=== PATIENT | female | born 1965 | race Caucasian/White ===

== ENCOUNTER 2016-11-18 11:30 | Outpatient (CLI) ==
[2016-11-18 11:57] LABS: HEMATOCRIT 40.7 % (37.0-47.0); HEMOGLOBIN 13.7 g/dl (12.0-16.0); MEAN CORPUSCULAR HEMOGLOBIN 32.9 pg (27.0-31.0); MEAN CORPUSCULAR HGB CONC 33.7 (31.8-35.4); MEAN CORPUSCULAR VOLUME 97.8 fl (81.0-99.0); PLATELET COUNT 186 10^3/uL (140-440); RED BLOOD COUNT 4.16 10^6/ul (4.20-5.40); WHITE BLOOD COUNT 5.04 K/ul (4.6-10.2)
[2016-11-18 12:27] LABS: CREATININE 0.76 mg/dL (0.60-1.30)
[2016-11-18 12:52] LABS: ERYTHROCYTE SEDIMENTATION RATE 31 mm/hr (0-20); ESR INTERNAL QC INTERNAL QC VALID
== END 2016-11-18 11:31 | disposition home or self-care (01) ==
LOC: LAB 11:30
PROVIDERS: ATTEND Internal Medicine Rheumatology
DX: M05.79 Rheumatoid arthritis with rheumatoid factor of multiple sites without organ or systems involvement (principal); Z79.899 Other long term (current) drug therapy
CPT/HCPCS: 36415; 82565; 84450; 84460; 85027; 85651

== ENCOUNTER 2017-06-03 10:04 | Outpatient (CLI) ==
[2017-06-03 10:25] LABS: HEMATOCRIT 39.5 % (37.0-47.0); HEMOGLOBIN 13.6 g/dl (12.0-16.0); MEAN CORPUSCULAR HEMOGLOBIN 32.9 pg (27.0-31.0); MEAN CORPUSCULAR HGB CONC 34.4 (31.8-35.4); MEAN CORPUSCULAR VOLUME 95.4 fl (81.0-99.0); PLATELET COUNT 174 10^3/uL (140-440); RED BLOOD COUNT 4.14 10^6/ul (4.20-5.40); WHITE BLOOD COUNT 6.51 K/ul (4.6-10.2)
[2017-06-03 10:43] LABS: CREATININE 0.71 mg/dL (0.60-1.30)
[2017-06-03 10:58] LABS: ERYTHROCYTE SEDIMENTATION RATE 10 mm/hr (0-20); ESR INTERNAL QC INTERNAL QC VALID
== END 2017-06-03 10:05 | disposition home or self-care (01) ==
LOC: LAB 10:04
PROVIDERS: ATTEND Internal Medicine Rheumatology
DX: M05.79 Rheumatoid arthritis with rheumatoid factor of multiple sites without organ or systems involvement (principal); Z79.899 Other long term (current) drug therapy
CPT/HCPCS: 36415; 82565; 84450; 84460; 85027; 85651

== ENCOUNTER 2017-08-13 13:26 | Outpatient (CLI) | END 2017-08-13 13:27 | disposition home or self-care (01) | LOC: LAB 13:26 | PROVIDERS: ATTEND General Practice | DX: E03.9 Hypothyroidism, unspecified (principal); L93.0 Discoid lupus erythematosus; M06.9 Rheumatoid arthritis, unspecified; R56.9 Unspecified convulsions; Z79.899 Other long term (current) drug therapy | CPT/HCPCS: 36415; 80053; 80061; 81001; 84443; 85025 ==

== ENCOUNTER 2017-10-10 12:27 | Outpatient (CLI) ==
--- NOTE | 2017-10-10 14:49 | DI ---
EXAM: Four views of the cervical spine. History: Cervical neck pain. Findings: No acute fracture or subluxation of the cervical spine. Straightening of the normal cervi jermey lordosis. Mild to moderate disc space narrowing at C5-6 and C6-7 with prominent anterior osteoph ytes. Mild disc space narrowing seen elsewhere. No prevertebral soft tissue swelling. Predental spa ce is not widened. Prominent laryngeal cartilage Impression: 1. No acute osseous abnormality of the cervical spine. 2. Mild to moderate degenerative disc disease at C5-6 and C6-7.
--- NOTE | 2017-10-10 14:50 | DI ---
EXAM: Three views of the thoracic spine. History: Thoracic back pain. Findings: No acute fracture or subluxation of the thoracic spine. Mild to moderate multilevel degen erative disc space narrowing with endplate sclerosis and a few prominent anterior osteophytes. Impression: 1. No acute osseous abnormality of the thoracic spine. 2. Mild to moderate degenerative disc disease
--- NOTE | 2017-10-10 14:56 | DI ---
EXAM: Radiographs, lumbar spine HISTORY: Lumbar facet joint arthropathy. COMPARISON: 02/13/2016. TECHNIQUE: Three views. FINDINGS: Left convex curvature centered near L3-4 noted. Alignment is normal. Vertebral body heig hts are maintained. There is severe loss of disc height along the right side of L3-4 with moderate l oss of disc height at L2-3 and L4-5. Endplate osteophyte formation is greatest at these levels. Mul tilevel facet arthropathy noted, generally mild. No fracture identified. Sacral arcuate lines intac t. Aortic atherosclerotic calcifications noted. IMPRESSION: Stable multilevel degenerative changes and left convex midlumbar curvature.
== END 2017-10-10 12:28 | disposition home or self-care (01) ==
LOC: RAD 12:27
PROVIDERS: ATTEND Pain Medicine Interventional Pain Medicine
DX: M47.812 Spondylosis without myelopathy or radiculopathy, cervical region (principal); M47.814 Spondylosis without myelopathy or radiculopathy, thoracic region; M47.816 Spondylosis without myelopathy or radiculopathy, lumbar region; M47.817 Spondylosis without myelopathy or radiculopathy, lumbosacral region; M50.320 Other cervical disc degeneration, mid-cervical region, unspecified level; M51.36 Other intervertebral disc degeneration, lumbar region; M51.37 Other intervertebral disc degeneration, lumbosacral region

== ENCOUNTER 2017-10-23 11:00 | Outpatient (RCR) ==
--- NOTE | 2017-10-20 11:33 | RS.OPPTEV2 ---
Date of Note: 10/16/17 Visit #: 1 Date of Evaluation: 10/16/17 Payer Source: Medicaid Surgery Performed?: No Treatment Diagnosis: lumbar spine pain, fibromyalgia History of Condition/Mechanism of Injury:: pt reports she has a long history of LBP with LE pain. MD diagnosis spondylosis of lumbar spine. 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 she states she has hard time picking her up due to pain and weakness. *Precautions: n/a Medical History Medical History: Arthritis Medical History Comments:: systemic lupus erythematosus, rheumatoid arthritis, major depressive disorder, anxiety, hypothyroidism, fibromyalgia, low back pain , irritable bowel syndrome, Surgical History: Hysterectomy Surgical History Comments:: L breast surgery Smoking Status: Current every day smoker Hx Home Medications: hydrocodone, methotrexate, levothyroxin, ranetidine, diazepam, chromium, hydrachlor. Patient's Goals: decrease pain Pain Assessment - Pain Description Pain Location: lumbar spine, radiating into R LE Pain Description: Aching, Chronic Current Pain Intensity: 8/10 Worst Pain Intensity: 10 Functional Outcome Measure LE Functional Scale: 29 (64%) - G Codes & Severity Modifier G Codes & Modifier: n/a Source of G Code score: n/a Observation - Observation Inspection: pt tearful during PT eval when reporting all the things she has to do at home even when she is having pain. 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 General Range of Motion: R shld AAROM flex WFL's with pain, abd: 105. LUE: WFL's. R LE WFL's with pain. L hip WFL's, knee WFL's with pain. Cervical spine ROM WFL' s Muscle Strength: RUE : shld flex 4-/5, elbow flex 4/5, ext 4-/5,. LUE shld flex 4/5, elbow flex 4+/5, ext 4/5. RLE hip flex 3+/5, knee flex/ext 4-/5, ankle DF/PF 4/5. LLE hip flex 4/5, knee flex/ext 4/5, ankle DF/PF 4/5 - ROM Lumbar Flexion: Hand reach to patellae Sidebending to Left: Reach to Lateral Joint Line Sidebending to Right: Reach to Lateral Joint Line Lumbar Spine ROM Limitations: Soft Tissue Tightness, Muscle Weakness, Pain - Strength Trunk Extension: 4- Good- Trunk Flexion: 3+ Fair+ Trunk Lateral Flexion: 4- Good- Trunk Rotation: 4- Good- - Special Tests YU Test: Positive Right Palpation Palpation Findings: Tenderness, Trigger Point, Muscle Guarding Comments:: trigger points noted lumbar paraspinals on R, tenderness over R SI. pt with hamstring min tight, tight piriformis on R as well as tight IT band on R Sensation - Sensation Right Upper Extremity: Intact/Normal Left Upper Extremity: Intact/Normal Right Lower Extremity: Impaired Left Lower Extremity: Impaired Comments: c/o n/t BLE Balance - Sitting Balance Static Sitting Balance: Normal Dynamic Sitting Balance: Normal - Standing Balance Static Standing Balance: Good Dynamic Standing Balance: Good - Comments Balance Assessment Comments: no LOB with amb Interventions - Exercise/Activities/Manual Therapy Exercises/Activities: pt instructed on gentle hamstring stretching, piriformis stretch, knee to chest, isometric hip add, resisted hip flex. Manual Therapy: n/a HOME EXERCISE PROGRAM: pt given written HEP including: gentle hamstring, pirifomis stretch on R, isometric hip add, resisted hip flex - Charges Timed Code Treatment Minutes: 62 Total Treatment Time: 58 Procedures billed for this date of service:: eval med EVALUATION COMPLEXITY LEVEL EVALUATION COMPLEXITY LEVEL: HISTORY: Medium (fibromyalgia, RA, SLE, spondylosis ), EXAM OF BODY SYSTEMS: Medium (pain, weakness, muscle tightness, posture), CLINICAL PRESENTATION: Medium (evolving), CLINICAL DECISION MAKING: Medium Assessment Assessment: pt presents with multiple areas of weakness, pain. Order is to treat lumbar spine pain. pt with pain, decreased posture, strength, muscle tightdaysi. Patient Education: Home Exercise Program, Education of Plan of Care Rehab Potential: Good Short Term Goals Goal #1: pt rate pain <8/10 with activity Goal to be met by: 11/06/17 Goal #2: Hamstring length BLE equal Goal to be met by: 11/06/17 Goal #3: pt with improved BLE strength 4 to 4+/5 Goal to be met by: 11/06/17 Goal #4: . 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 Goal to be met by: 11/27/17 Goal #3: pt with no radiating pain into RLE Goal to be met by: 11/27/17 Goal #4: Improved LE functional score > 35 Goal to be met by: 11/27/17 Plan - Treatment to be Provided Procedures: Therapeutic Exercises, Therapeutic Activity, Neuromuscular Rehab, Manual Therapy, Massage, Patient Education Modalities: Electrical Stimulation, Ultrasound/Phonophoresis, Class IV Laser, Cryotherapy - Treatment Plan Frequency: 2 X week Duration: 6 weeks ORDER # VISITS AND/OR THROUGH DATE: 11/27/17 - Treatment Code (1) Lumbar spine pain Code(s): M54.5 - LOW BACK PAIN (2) Fibromyalgia Code(s): M79.7 - FIBROMYALGIA (3) Rheumatoid arthritis Code(s): M06.9 - RHEUMATOID ARTHRITIS, UNSPECIFIED Qualifiers: Rheumatoid arthritis location: unspecified site Rheumatoid factor presence : unspecified presence Qualified Code(s): M06.9 - Rheumatoid arthritis, unspecified (4) Muscle weakness Code(s): M62.81 - MUSCLE WEAKNESS (GENERALIZED) (5) Systemic lupus erythematosus Code(s): M32.9 - SYSTEMIC LUPUS ERYTHEMATOSUS, UNSPECIFIED Qualifiers: Systemic lupus erythematosus type: unspecified Systemic lupus erythematosus organ involvement: unspecified Qualified Code(s): M32.9 - Systemic lupus erythematosus, unspecified
--- NOTE | 2017-10-21 14:21 | RS.CXNS ---
Date of scheduled appointment: 10/21/17 Type: Cancel Reason for Cancel/NS: dental work done
--- NOTE | 2017-10-23 12:06 | RS.OPPTDN ---
Subjective Date of Note: 10/23/17 Visit #: 2 Date of Evaluation: 10/16/17 Payer Source: Medicaid Treatment Diagnosis: lumbar spine pain, fibromyalgia Current Subjective/complaints:: Patient says she has been doing HEP so that she may get stronger to care for her granddaughter. She says her R leg seems to be weaker, but does also report she has had an injection to this knee and her meds also has been changed (pain meds). *Precautions: n/a Interventions - Exercise/Activities/Manual Therapy Exercises/Activities: Patient received passive stretching to bilateral LE's including SKTC, HS, piriformis, and lower trunk rotation x 4. Patient performs : ball squeezes for patel hip add, hooklying hip abd with red tband, SAQ, isometric hip flexion (x 5), DF with red tband. LAQ and instructed in shoulder shrugs and scap adduction. We discussed diagnosis, posture, and lifting techniques pertaining to babysitting and also slowly beginning walking routine. Total minutes of Exercise: 34 Manual Therapy: n/a HOME EXERCISE PROGRAM: pt given written HEP including: gentle hamstring, pirifomis stretch on R, isometric hip add, resisted hip flex - Charges Timed Code Treatment Minutes: 34 Total Treatment Time: 34 Procedures billed for this date of service:: ex2 Assessment: Patient presents with 4/10 pain level and did not elevate with therex. Patient demo crepitus continuously to the R knee during SAQ. All therex appeared to be dewayne well. She is motivated to improve to care for granddaughter. Patient Education: Education of diagnosis, Body/Joint mechanics, Home Exercise Program, Education of Plan of Care Patient demonstrates compliance with HEP?: Yes Short Term Goals Goal #1: pt rate pain <8/10 with activity Goal to be met by: 11/06/17 Goal #2: Hamstring length BLE equal Goal to be met by: 11/06/17 Goal #3: pt with improved BLE strength 4 to 4+/5 Goal to be met by: 11/06/17 Goal #4: . 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 Utilize stationary bike next week.
--- NOTE | 2017-10-30 11:29 | RS.CXNS ---
Date of scheduled appointment: 10/30/17 Type: Cancel
== END 2017-11-10 23:59 ==
PROVIDERS: ATTEND Pain Medicine Interventional Pain Medicine
DX: M54.6 Pain in thoracic spine (principal); M54.2 Cervicalgia; M79.7 Fibromyalgia

== ENCOUNTER 2017-12-11 13:00 | Outpatient (RCR) ==
--- NOTE | 2017-11-21 11:01 | RS.OPPTEV2 ---
Date of Note: 11/20/17 Visit #: 1 Date of Evaluation: 11/20/17 Payer Source: Medicaid Surgery Performed?: No Treatment Diagnosis: thoracic spine pain, fibromyalgia History of Condition/Mechanism of Injury:: pt reports she has had a long history of pain due to fibromyalgia, lupus as well as OA, RA. Prior Level of Function.....Patient was independent with: ADL's, Self Care, Caregiving, Ambulation/Mobility, Community Integration/Access Functional Limitations: Sleep, Reaching, Pushing, Pulling, Lifting, Carrying, Standing, Squatting, Ambulation Current Subjective/complaints:: pt reports that she received injections in Lumbar spine and hip on 11/17/17. pt reports that MD feels thoracic pain is more muscular. Treatment Side (optional): N/A *Precautions: n/a Medical History Medical History: Arthritis Medical History Comments:: systemic lupus erythematosus, rheumatoid arthritis, major depressive disorder, anxiety, hypothyroidism, fibromyalgia, low back pain , irritable bowel syndrome, Surgical History: Hysterectomy Surgical History Comments:: L breast surgery (hematoma evacuated) Smoking Status: Current every day smoker Hx Home Medications: hydrocodone,levothyroxin, ranetidine, diazepam, chromium, hydrachlor. Patient's Goals: decrease pain Pain Assessment - Pain Description Pain Location: thoracic spine Pain Description: Aching Current Pain Intensity: 8 Worst Pain Intensity: 10 Functional Outcome Measure Neck Disability Index: 25 - G Codes & Severity Modifier G Codes & Modifier: n/a Source of G Code score: n/a Observation - Observation Posture: Forward Head, Rounded Shoulders, Increased Thoracic Kyphosis, Decreased Lumbar Lordosis, Scoliosis (xrays document mild curvature) Handedness: Right Gait - Gait Pattern General Gait Pattern Observation: No Deviations/Normal General Range of Motion: ROM WFL's BUE and BLE. Cervical ROM WFL's. Lumbar ROM flex to knees with increased pain and difficulty. side bending also limited due to pain side bending to lat joint line. Muscle Strength: B UE 5/5. BLE hip flex 4+/5, knee flex/ext 5/5, ankle DF/PF 5/ 5 Palpation Palpation Findings: Trigger Point (trigger point noted to medial border of L scapula. ) Sensation - Sensation Sensation Description: Tingling Comments: pt reports occasional numbness and tingling B hands and feet. Balance - Sitting Balance Static Sitting Balance: Normal Dynamic Sitting Balance: Normal - Standing Balance Static Standing Balance: Normal Dynamic Standing Balance: Normal Interventions - Exercise/Activities/Manual Therapy Exercises/Activities: pt performed BUE shld shrugs, scapular retraction, as well as scapular retraction elbows bent, elbows straight with green t band. pt also performed corner stretches 2 positions. Total minutes of Exercise: 14 Manual Therapy: n/a Total minutes of Manual Therapy: n/a HOME EXERCISE PROGRAM: pt given written HEP including: gentle hamstring, pirifomis stretch on R, isometric hip add, resisted hip flex - Charges Timed Code Treatment Minutes: 46 Total Treatment Time: 57 Procedures billed for this date of service:: eval mod EVALUATION COMPLEXITY LEVEL EVALUATION COMPLEXITY LEVEL: HISTORY: Medium (fibromyalgia, RA, SLE, OA), EXAM OF BODY SYSTEMS: Medium (pain, posture, strength, stretching), CLINICAL PRESENTATION: Medium (evolving), CLINICAL DECISION MAKING: Medium Assessment Assessment: pt presents with increased thoracic kyphosis, pain in thoracic spine , poor posture. pt also with muscle weakness. Feel pt would benefit from skilled PT for therex for strengthening, stretching as well as modalities to decrease pain and improve posture. Patient Education: Home Exercise Program, Education of Plan of Care Rehab Potential: Good Short Term Goals Goal #1: pt rate pain <8/10 with activity Goal to be met by: 12/04/17 Goal #2: pt independent with initial HEP Goal to be met by: 12/04/17 Goal #3: pt with improved posture noted Goal to be met by: 12/04/17 Goal #4: . 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 Plan - Treatment to be Provided Procedures: Therapeutic Exercises, Therapeutic Activity, Neuromuscular Rehab, Manual Therapy, Massage, Patient Education Modalities: Electrical Stimulation, Ultrasound/Phonophoresis, Class IV Laser, Cryotherapy - Treatment Plan Frequency: 2 X week Duration: 4 weeks ORDER # VISITS AND/OR THROUGH DATE: 12/18/17 - Treatment Code (1) Thoracic back pain Code(s): M54.6 - PAIN IN THORACIC SPINE Qualifiers: Chronicity: chronic Back pain laterality: unspecified Qualified Code(s): M54.6 - Pain in thoracic spine; G89.29 - Other chronic pain (2) Fibromyalgia Code(s): M79.7 - FIBROMYALGIA (3) Muscle weakness Code(s): M62.81 - MUSCLE WEAKNESS (GENERALIZED) (4) Systemic lupus erythematosus Code(s): M32.9 - SYSTEMIC LUPUS ERYTHEMATOSUS, UNSPECIFIED Qualifiers: Systemic lupus erythematosus type: unspecified Systemic lupus erythematosus organ involvement: unspecified Qualified Code(s): M32.9 - Systemic lupus erythematosus, unspecified
--- NOTE | 2017-12-11 14:02 | RS.OPPTDN ---
Subjective Date of Note: 12/11/17 Visit #: 2 Date of Evaluation: 11/20/17 Payer Source: Medicaid Treatment Diagnosis: thoracic spine pain, fibromyalgia Current Subjective/complaints:: Rerports her entire back hurts today ,but understands the upper back is the primary area of treatment. *Precautions: n/a Pain Assessment - Pain Description Pain Location: thoracic pain Pain Description: Aching Current Pain Intensity: 8/10 - Treatment Modality: Ultrasound Parameters/Method Applied: 10 mins. @ 1.5 w/cm2 to thoracic area,continuous mode. Patient Position: Sitting - Heat/Cryotherapy Treatment: Hot Pack (20 mins.. prior to US and exercises) Interventions - Exercise/Activities/Manual Therapy Exercises/Activities: 20 mins. total of scapular pro/retraction with green theraband,shoulder cicrcles,shrugs.Seated horizontal abduction of both UE's ( T - position with soft bolster placed on the spinous processes.) Total minutes of Exercise: 20 Manual Therapy: n/a Total minutes of Manual Therapy: 0 HOME EXERCISE PROGRAM: pt given written HEP including: gentle hamstring, pirifomis stretch on R, isometric hip add, resisted hip flex - Charges Timed Code Treatment Minutes: 30 Total Treatment Time: 50 Procedures billed for this date of service:: hp,US,ex 1 Assessment: Patient gives good return demo of thoracic exercises,reports stretch discomfort ,but no sharp pain present.She reports she is already more aware of her posture ,trying to avoid forward head /rounded shoulders position.She is attentive to recommendations for HEP,including stretches and strengthening. Patient Education: Body/Joint mechanics, Home Exercise Program, Activity Modification, Education of Plan of Care Patient demonstrates compliance with HEP?: Yes Short Term Goals Goal #1: pt rate pain <8/10 with activity Goal to be met by: 12/04/17 (8/10 today) Progress towards Goal:: No Change Goal #2: pt independent with initial HEP Goal to be met by: 12/04/17 Progress towards Goal:: Progressing Goal #3: pt with improved posture noted Goal to be met by: 12/04/17 Progress towards Goal:: Progressing Goal #4: . 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 Plan PLAN OF CARE EXPIRES ON:: 12/18/17 ORDER # VISITS AND/OR THROUGH DATE: 12/18/17 PLAN: Continue PT to educate patient for better posture,strengthening thoracic region ,reduce /eliminate pain.
== END 2017-12-11 23:59 ==
PROVIDERS: ATTEND Pain Medicine Interventional Pain Medicine
DX: M54.6 Pain in thoracic spine (principal); M54.5 Low back pain; M79.7 Fibromyalgia; M62.81 Muscle weakness (generalized); G89.29 Other chronic pain; M32.9 Systemic lupus erythematosus, unspecified

== ENCOUNTER 2017-12-15 13:12 | Outpatient (RCR) ==
--- NOTE | 2017-12-15 14:13 | RS.OPPTDN ---
Subjective Date of Note: 12/15/17 Visit #: 3 Date of Evaluation: 11/20/17 Payer Source: Medicaid Treatment Diagnosis: thoracic spine pain, fibromyalgia Current Subjective/complaints:: Patient reports she was playing her grandchildren while seated on floor ,had to pull herself up from floor holding to furniture.She is hurting more today,feels she "overdid it." *Precautions: n/a Pain Assessment - Pain Description Pain Location: upper back along scapular borders Pain Description: Aching, Chronic Current Pain Intensity: 9 - Treatment Modality: Ultrasound Parameters/Method Applied: 10 mins. @ 1.5 w/cm2 , continuous mode. Patient Position: Sitting - Heat/Cryotherapy Treatment: Hot Pack (20 mins. prior to US and exercises) Interventions - Exercise/Activities/Manual Therapy Exercises/Activities: 20 mins. total of scapular pro/retraction with green theraband,shoulder cicrcles,shrugs.Seated horizontal abduction of both UE's , HEP of corner stretches. Total minutes of Exercise: 20 Manual Therapy: n/a Total minutes of Manual Therapy: 0 HOME EXERCISE PROGRAM: pt given written HEP including: gentle hamstring, pirifomis stretch on R, isometric hip add, resisted hip flex - Charges Timed Code Treatment Minutes: 30 Total Treatment Time: 50 Procedures billed for this date of service:: hp,US,ex 1 Assessment: Patient reports less pain after treatment ,less tender to palpate , especially the medial border of the R scapula.She has improved awareness of her psture ,especially with sitting. Patient Education: Body/Joint mechanics, Home Exercise Program, Activity Modification, Education of Plan of Care Patient demonstrates compliance with HEP?: Yes Short Term Goals Goal #1: pt rate pain <8/10 with activity Goal to be met by: 12/04/17 (9 initially ,but less after treatment) Progress towards Goal:: Progressing Goal #2: pt independent with initial HEP Goal to be met by: 12/04/17 Progress towards Goal:: Progressing Goal #3: pt with improved posture noted Goal to be met by: 12/04/17 Progress towards Goal:: Progressing Goal #4: . 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 Plan PLAN OF CARE EXPIRES ON:: 12/18/17 ORDER # VISITS AND/OR THROUGH DATE: 12/18/17 PLAN: Cont.PT to reduce/eliminate back pain.
--- NOTE | 2017-12-16 12:44 | RS.QUICKDC ---
Discharge from PT Date of Discharge: 12/16/17 Number of Visits: 3 Reason for Discharge: Patient was to be D/C 'd today,called and cancelled due to elevatyed pain .She reports temporary relief only.Agrees to D/C today.
== END 2018-01-10 23:59 ==
PROVIDERS: ATTEND Pain Medicine Interventional Pain Medicine
DX: M54.6 Pain in thoracic spine (principal); G89.29 Other chronic pain; M79.7 Fibromyalgia; M62.81 Muscle weakness (generalized); M32.9 Systemic lupus erythematosus, unspecified

== ENCOUNTER 2018-01-28 19:14 | Emergency (ER) ==
[2018-01-28 19:19] VITALS: BP 149/72; TEMP 99.4; BMI 31.3
[2018-01-28] MEDS ORDERED: SODIUM CHLORIDE 1,000 ML IV STA ×2 (19:22→20:50)
[2018-01-28] MEDS ORDERED: DILAUDID 0.5 MG/0.5 ML SYRINGE IVP STA ×2 (19:23→21:48)
[2018-01-28] MEDS ORDERED: ZOFRAN 4 MG/2 ML IVP STA (19:23)
[2018-01-28] MEDS ORDERED: PHENERGAN 25 MG/ML VIAL 25 MG in SODIUM CHLORIDE 50 ML IV STA (19:49)
--- NOTE | 2018-01-28 20:38 | CT ---
EXAM: CT abdomen and pelvis with contrast HISTORY: Abdominal pain in the left lower to left upper quadrant with onset at 6:00 a.m. this morning . Nausea, vomiting, and diarrhea. Progressively worsening symptoms. TECHNIQUE: Multi-slice transaxial helical with coronal and sagittal reformed images CONTRAST: Intravenous Omnipaque 350, 75 mL COMPARISON: None FINDINGS: The lung bases are free of acute airspace or interstial opacities. The heart size is norm al. There are no pericardial or pleural effusions. The hepatic attenuation is mildly low diffusely relative to the spleen. The spleen has normal size a ttenuation. The gallbladder is present without biliary dilatation. The pancreas and adrenal glands are grossly normal. The kidneys have normal size and attenuation. Ureters are normal caliber. The nonopacified bladder is grossly normal. The uterus is absent and there are no adnexal masses. The appendix is normal. Small bowel loops are minimally dilated without distension. There is sugges tion of mucosal hyperemia within the stomach and large bowel. There is a solitary diverticulum at th e cecum without CT evidence of diverticulitis. No lymphadenopathy, ascites, or free air. The aorta is minimally atherosclerotic but normal caliber and patency. The bones are free of suspicious osteolytic or osteoblastic lesions. IMPRESSION: 1. Diffuse hepatic steatosis. 2. Suggestion of gastroenteritis and possible colitis. Nonobstructive intestinal gas pattern. Norm al appendix. 3. ASCVD.
[2018-01-28] MEDS ORDERED: PHENERGAN 25 MG/ML VIAL ONE (20:41)
--- NOTE | 2018-01-28 22:38 | ED.PDOC ---
General ED Provider: Dr. SEBASTIÁN MCINTOSH-ER Chief Complaint: Nausea/Vomiting Stated Complaint: elif been vomiting since this am Time Seen by Physician: 19:20 Mode of Arrival: Walk-In Information Source: Patient, Family Exam Limitations: No limitations Primary Care Provider: [facility] Nursing and Triage Documentation Reviewed and Agree: Yes Does patient meet sepsis criteria?: No System Inflammatory Response Syndrome: Not Applicable Sepsis Protocol: For patient's 13 years and over: Temp is 96.8 and below OR 101 and greater Pulse >90 BPM Resp >20/minute Acutely Altered Mental Status Are patient's symptoms suggestive of a new infection, such as: -Pneumonia -Skin, Soft Tissue -Endocarditis -UTI -Bone, Joint Infection -Implantable Device -Acute Abdominal Infection -Wound Infection -Meningitis -Blood Stream Catheter Infection -Unknown GI Complaint Exam - Vomiting/Diarrhea Complaint/Exam Onset/Duration: 12 hrs Symptoms Are: Still present Initial Severity: Mild Current Severity: Moderate Character of Vomiting: Reports: Non-bilious Aggravating: Reports: None Alleviating: Reports: None Associated Signs and Symptoms: Reports: Abdominal pain. Denies: Dizziness, Light-headedness, Melena, Hematemesis, Fever, Cramping Kussmaul Respirations Present: No Differential Diagnoses: Bowel Obstruction, Cholecystitis, Cholelithiasis, Dehydration, Viral Gastroenteritis, UTI Review of Systems - Review Of Systems Constitutional: Reports: No symptoms Eyes: Reports: No symptoms Ears, Nose, Mouth, Throat: Reports: No symptoms Respiratory: Reports: No symptoms Cardiac: Reports: No symptoms GI: Reports: Abdominal pain, Nausea, Vomiting : Reports: No symptoms Musculoskeletal: Reports: No symptoms Skin: Reports: No symptoms Neurological: Reports: No symptoms Endocrine: Reports: No symptoms Hematologic/Lymphatic: Reports: No symptoms All Other Systems: Reviewed and Negative Past Medical History - Past Medical History Previously Healthy: No Endocrine: Reports: Unknown Cardiovascular: Reports: Unknown Respiratory: Reports: Unknown Hematological: Reports: Unknown Gastrointestinal: Reports: Unknown Genitourinary: Reports: Unknown Neuro/Psych: Reports: Unknown Musculoskeletal: Reports: Unknown Cancer: Reports: Unknown Last Menstrual Period: NONE - Surgical History General Surgical History: Reports: Unknown - Family History Family History: Reports: Unknown - Social History Smoking Status: Current every day smoker, Heavy tobacco smoker Hx Substance Use: No Alcohol Screening: None - Immunizations Tetanus Shot up to Date: Yes Physical Exam - Physical Exam Appearance: Well-appearing, No pain distress, Well-nourished Pain Distress: Moderate Eyes: SHANELL, EOMI, Conjunctiva clear ENT: Ears normal, Nose normal, Oropharynx normal Neck: Supple Respiratory: Airway patent, Breath sounds clear, Breath sounds equal, Respirations nonlabored Cardiovascular: RRR, Pulses normal, No rub, No murmur GI/: Soft, Nontender, No masses, Bowel sounds normal, No Organomegaly Musculoskeletal: Normal strength, ROM intact, No edema, No calf tenderness Skin: Warm, Dry, Normal color Neurological: Sensation intact, Motor intact, Reflexes intact, Cranial nerves intact, Alert, Oriented Psychiatric: Affect appropriate, Mood appropriate Interpretation - Radiology Interpretation Radiology Interpretation By: Radiologist Radiology Results: Negative Exam Interpreted: CT Scan - EKG Interpretation Time of EKG #1: 22:38 Rate: Normal Rhythm: Sinus Ectopy: None [place]: NL ST Segment: Normal Interpretation: nsr Re-Evaluation - Re-Evaluation Time of Re-Evaluation: 22:38 Status: Improved Vital Signs Stable: Yes Pain Level: 0 Appearance: NAD Lungs: Clear Skin: Warm and Dry Neuro: Alert and Oriented X3 CV: RRR Critical Care Note - Critical Care Note Total Time (mins): 0 Course - Course Hematology/Chemistry: 01/28/18 19:31 18 19:31 Orders, Labs, Meds: Lab Review 01/28/18 01/28/1818 19:31 19:31 19:31 WBC 8.70 RBC 4.70 Hgb 14.6 Hct 42.2 MCV 89.8 MCH 31.1 H MCHC 34.6 RDW Coeff of Marito 12.7 Plt Count 169 Immature Gran % (Auto) 0.3 Neut % (Auto) 78.9 Lymph % (Auto) 13.2 Moody % (Auto) 7.5 Eos % (Auto) 0.0 Baso % (Auto) 0.1 Immature Gran # (Auto) 0.0 Neut # (Auto) 6.9 Lymph # (Auto) 1.2 Moody # (Auto) 0.7 Eos # (Auto) 0.0 Baso # (Auto) 0.0 ESR 16 Sodium 137 Potassium 3.5 Chloride 103 Carbon Dioxide 24 Anion Gap 13.5 BUN 10 Creatinine 0.71 Estimated GFR (MDRD) 86.00 BUN/Creatinine Ratio 14.08 Glucose 109 Calcium 10.1 Total Bilirubin 0.5 AST 18 ALT 8 L Alkaline Phosphatase 63 Total Creatine Kinase 37 Troponin I 0.0530 Total Protein 7.2 Albumin 3.9 Globulin 3.3 Albumin/Globulin Ratio 1.18 Amylase 54 Lipase 10 Serum , Qual Negative Urine Color Urine Clarity Urine pH Ur Specific [place] Urine Protein Urine Glucose (UA) Urine Ketones Urine Blood Urine Nitrite Urine Bilirubin Urine Urobilinogen Ur Leukocyte Esterase 01/28/18 21:18 WBC RBC Hgb Hct MCV MCH MCHC RDW Coeff of Marito Plt Count Immature Gran % (Auto) Neut % (Auto) Lymph % (Auto) Moody % (Auto) Eos % (Auto) Baso % (Auto) Immature Gran # (Auto) Neut # (Auto) Lymph # (Auto) Moody # (Auto) Eos # (Auto) Baso # (Auto) ESR Sodium Potassium Chloride Carbon Dioxide Anion Gap BUN Creatinine Estimated GFR (MDRD) BUN/Creatinine Ratio Glucose Calcium Total Bilirubin AST ALT Alkaline Phosphatase Total Creatine Kinase Troponin I Total Protein Albumin Globulin Albumin/Globulin Ratio Amylase Lipase Serum , Qual Urine Color Yellow Urine Clarity Clear Urine pH 7.5 Ur Specific [place] 1.015 Urine Protein Negative Urine Glucose (UA) Negative Urine Ketones Negative Urine Blood Negative Urine Nitrite Negative Urine Bilirubin Negative Urine Urobilinogen 0.2 Ur Leukocyte Esterase Negative Orders Category Date Time Status EKG-(ED ONLY) Stat CARDIO 01/28/18 19:22 Completed NPO REMINDER: IMAGING ONCE CARE 01/28/18 19:24 Completed ED IV/MEDIPORT/POWERPORT .ONCE EMERGENCY 01/28/18 19:22 Active AMYLASE Stat LAB 01/28/18 19:31 Completed CBC W/ AUTO DIFF Stat LAB 01/28/18 19:31 Completed COMPREHENSIVE METABOLIC PANEL Stat LAB 01/28/18 19:31 Completed CREATINE KINASE Stat LAB 01/28/18 19:31 Completed ESR Stat LAB 01/28/18 19:31 Completed LIPASE Stat LAB 01/28/18 19:31 Completed SERUM Stat LAB 01/28/18 19:31 Completed TROPONIN I Stat LAB 01/28/18 19:31 Completed URINALYSIS C & S IF INDICATED Stat LAB 01/28/18 21:18 Completed 0.9 % Sodium Chloride [Saline Flush] MEDS 01/28/18 19:22 Ordered 1 syr IVF PRN PRN Hydromorphone HCl [Dilaudid] MEDS 01/28/18 19:23 Discontinued 1 mg IVP ONCE STA Hydromorphone HCl [Dilaudid] MEDS 01/28/18 21:48 Discontinued 1 mg IVP ONCE STA Ondansetron HCl/Pf [Zofran 4 mg/2 ml] MEDS 01/28/18 19:23 Discontinued 8 mg IVP ONCE STA Promethazine HCl [Phenergan 25 mg/ml Vial] MEDS 01/28/18 20:41 Discontinued 25 mg .ROUTE .STK-MED ONE Promethazine HCl [Phenergan 25 mg/ml Vial] 25 mg MEDS 01/28/18 19:49 Discontinued 0.9 % Sodium Chloride [Sodium Chloride] 50 ml IV ONCE Sodium Chloride 0.9% [Sodium Chloride] 1,000 ml MEDS 01/28/18 19:22 Discontinued IV BOLUS Sodium Chloride 0.9% [Sodium Chloride] 1,000 ml MEDS 01/28/18 20:[address] ABDOMEN/PELVIS W CONTRAST Stat RADS 01/28/18 19:23 Completed Medications Generic Name Dose Route Start Last Admin Trade Name Freq PRN Reason Stop Dose Admin Sodium Chloride 1 syr 01/28/18 19:22 Saline Flush IVF PRN PRN To flush IV Discontinued Medications Generic Name Dose Route Start Last Admin Trade Name Freq PRN Reason Stop Dose Admin Hydromorphone HCl 1 mg 01/28/18 19:23 01/28/18 19:37 Dilaudid IVP 01/28/18 19:24 1 mg ONCE STA Administration Hydromorphone HCl 1 mg 01/28/18 21:48 01/28/18 21:49 Dilaudid IVP 01/28/18 21:49 1 mg ONCE STA Administration Sodium Chloride 1,000 mls @ 1,000 mls/hr 01/28/18 19:22 01/28/18 19:38 Sodium Chloride IV 01/28/18 20:21 1,000 mls/hr BOLUS STA Administration Promethazine HCl 25 mg/ Sodium 51 mls @ 75 mls/hr 01/28/18 19:49 01/28/18 20: 44 Chloride IV 01/28/18 20:29 75 mls/hr ONCE STA Administration Sodium Chloride 1,000 mls @ 1,000 mls/hr 01/28/18 20:50 01/28/18 20:53 Sodium Chloride IV 01/28/18 21:49 1,000 mls/hr BOLUS STA Administration Ondansetron HCl 8 mg 01/28/18 19:23 01/28/18 19:38 Zofran 4 Mg/2 Ml IVP 01/28/18 19:24 8 mg ONCE STA Administration Vital Signs: Temp Pulse Resp BP Pulse Ox 01/28/18 19:15 99.4 F 65 22 149/72 H 98 Departure - Departure Time of Disposition: 22:38 Disposition: HOME SELF-CARE Discharge Problem: Abdominal pain Instructions: Acute Abdominal Pain (ED) Condition: Good Pt referred to PMD for follow-up: Yes IPMP verified?: No Additional Instructions: clear liquids--zofran 4mg q 4hrs prn nausea #6---f/u with pcp--consider gb xrays if symptoms persist Allergies/Adverse Reactions: Allergies Penicillins Adverse Reaction (Intermediate, Unverified 01/28/18 20:52) Hives hives and itching Home Medications: Ambulatory Orders Ranitidine HCl 150 mg PO BID 10/10/14 Chromium Picolinate 1,000 mcg PO BID #60 tab-cap 08/13/17 Diazepam 5 mg PO DAILY 08/13/17 Folic Acid 0.4 mg PO DAILY #30 tab-cap 08/13/17 Hydrocodone-Acetamin 10-325 Mg 1 each PO QID 08/13/17 Hydroxychloroquine Sulfate 200 mg PO BID 08/13/17 Levetiracetam 1,000 mg PO BID 08/13/17 Levothyroxine Sodium 50 mcg PO DAILY 08/13/17 Leflunomide [Arava] 20 mg PO DAILY 01/28/18 Zolpidem Tartrate [Ambien] 10 mg PO BEDTIME 01/28/18 Disposition Discussed With: Patient, Family
== END 2018-01-28 22:45 | disposition home or self-care (01) ==
LOC: ED 19:14
DX: R10.9 Unspecified abdominal pain (principal); R11.2 Nausea with vomiting, unspecified; F17.210 Nicotine dependence, cigarettes, uncomplicated
CPT/HCPCS: 36415; 80053; 81001; 82150; 82550; 83690; 84484; 84703; 85025; 85651; 93005; 93010; 96361; 96365; 96375; 99284

== ENCOUNTER 2018-02-03 12:51 | Outpatient (CLI) | END 2018-02-03 12:52 | disposition home or self-care (01) | LOC: FCC-LAB 12:51 | PROVIDERS: ATTEND General Practice | DX: R10.9 Unspecified abdominal pain (principal); R11.10 Vomiting, unspecified; R19.7 Diarrhea, unspecified | CPT/HCPCS: 36415; 80053; 82150; 83690; 85025 ==

== ENCOUNTER 2018-02-04 10:48 | Outpatient (CLI) | END 2018-02-04 10:49 | disposition home or self-care (01) | LOC: FCC-LAB 10:48 | PROVIDERS: ATTEND General Practice | DX: R10.9 Unspecified abdominal pain (principal); R19.7 Diarrhea, unspecified; R11.0 Nausea | CPT/HCPCS: 87015; 87045; 87899 ==

== ENCOUNTER 2018-09-10 13:19 | Outpatient (CLI) | payer OTHER ==
--- NOTE | 2018-09-11 11:53 | MAMMO ---
EXAM: Bilateral digital screening mammogram (2-D and 3-D) History: Screening Comparison: None available. Findings: MLO and CC views of bilateral breasts demonstrate predominately fatty replaced breast pare nchyma. CAD was reviewed by the radiologist. Tomosynthesis was performed. There are no dominant ma sses, no suspicious microcalcifications and no architectural distortions Impression: Negative mammogram. Recommend followup routine screening mammography in 1 year. BIRADS 1, negative
== END 2018-09-10 13:20 | disposition home or self-care (01) ==
LOC: RAD 13:19
PROVIDERS: ATTEND General Practice
DX: Z12.31 Encounter for screening mammogram for malignant neoplasm of breast (principal)

== ENCOUNTER 2019-01-05 11:22 | Outpatient (CLI) | END 2019-01-05 11:23 | disposition home or self-care (01) | LOC: LAB 11:22 | PROVIDERS: ATTEND General Practice | DX: L93.0 Discoid lupus erythematosus (principal); M06.9 Rheumatoid arthritis, unspecified; M54.9 Dorsalgia, unspecified; M54.2 Cervicalgia; G89.29 Other chronic pain; R56.9 Unspecified convulsions; F41.9 Anxiety disorder, unspecified; E03.9 Hypothyroidism, unspecified; K21.9 Gastro-esophageal reflux disease without esophagitis; R07.9 Chest pain, unspecified; R13.10 Dysphagia, unspecified; Z79.899 Other long term (current) drug therapy | CPT/HCPCS: 36415; 80053; 80061; 80306; 81001; 82550; 84443; 84484; 85025; 93005; 93010 ==